=== PATIENT | male | born 1970 | race Caucasian/White ===

== ENCOUNTER → 2017-11-16 | Outpatient (CLI) | payer OTHER ==
[~2017-11-16] MED LIST: AMOX500T10 PO; CEP500 PO; CIPR-344 PO; ESCI20TA38 PO; ESOM20CA31; HYDR-385 PO; IBUP-1455 PO; KET10 PO; LANS1COM7; LOPE1LIQ49 PO; METR-1 PO; NAP500 PO; OMEP-218 PO; PER PO; antidepressant
[2017-11-16 12:32] LABS: PLATELET COUNT, AUTOMATED 257 K/uL (150-450)
--- NOTE | 2017-11-16 13:33 | RADIOLOGY IMAGING REPORT ---
[place] [facility] [place] Werner Oneill : 1970 MR: [id number] V: [id number] EXAM DATE: ORDERING PHYSICIAN: HAJA SHANE TECHNOLOGIST: Location: [facility] Patient: Werner Oneill : 1970 Visit/Account:[id number] Date of Sevice: 11/16/2017 Exam type: CHEST PA AND LAT History: Shortness of breath and cough x1 week Comparison: September 20, 2010. Findings: The lungs are free of acute effusions, infiltrates or edema.. There is a 1.2 cm nodule projecting ov er the posterior aspect left upper thorax as seen on the lateral view. This is not appreciated on th e prior study. This is not well seen on the PA view. Cardiac silhouette is normal in size. IMPRESSION: 1. There is a 1.2 cm nodular density projecting over the posterior aspect of the left upper thorax o nly appreciated on the lateral view. This was not seen on the prior chest there for chest CT is kevin mmended for further evaluation Report Dictated By: Sheri Wilkins MD at 11/16/2017 1:27 PM Report E-Signed By: Sheri Wilkins MD at 11/16/2017 1:29 PM WSN:[email or web address]
== END ==
LOC: LAB 12:13
PROVIDERS: ATTEND Nurse Practitioner Family
DX: R22.2 Localized swelling, mass and lump, trunk (principal); R06.02 Shortness of breath; R05 Cough
CPT/HCPCS: 36415; 71046; 85025; 85379

== ENCOUNTER → 2017-11-17 | Outpatient (CLI) | payer OTHER ==
--- NOTE | 2017-11-17 09:51 | RADIOLOGY IMAGING REPORT ---
FACILITY: [facility] - [place] PATIENT NAME: Wrener Oneill : 1970 MR: [id number] V: [id number] EXAM DATE: ORDERING PHYSICIAN: HAJA SHANE TECHNOLOGIST: Location: [facility] [place] Patient: Werner Oneill : 1970 Visit/Account:[id number] Date of Sevice: 11/17/2017 CHEST W/O CONTRAST HISTORY: Pulmonary nodule, cough. TECHNIQUE: CT chest without intravenous contrast. One of the following dose optimization techniques was utilized in the performance of this exam: Autom ated exposure control; adjustment of the mA and/or kV according to the patient's size; or use of an i terative reconstruction technique. Specific details can be referenced in the facility's radiology C T exam operational policy. CONTRAST: None. COMPARISON: Chest x-ray 11/16/2017, CT chest 03/27/2010 FINDINGS: Heart/vessels: Negative. Mediastinum: Very small sliding-type hiatal hernia. Lymph nodes: No bulky adenopathy. Lungs/pleura: Noncalcified 4 mm nodule right middle lobe (series 4/image 205), unchanged from prior CT and consistent with benign granuloma. Subtle 4 mm groundglass nodule posterior lateral right apex (image 88), not definitively present on prior exam. Noncalcified punctate nodule lateral left upper l obe (image 200), unchanged from prior CT and consistent with benign granuloma. Noncalcified 3 mm nodu le posterior lateral left lower lobe (image 224), unchanged from prior CT and consistent with benign granuloma. Visualized upper abdomen: Spleen incompletely visualized but at least mildly enlarged. Bones/soft tissues: 2.1 cm right thyroid nodule. Dense T5 vertebral body lesion measuring 13 mm, inc reased in size from remote prior exam where it measured 4 mm. Other small sclerotic foci within the t horacic spine are unchanged. IMPRESSION: 1. 13 mm dense bony lesion within the T5 vertebral body, corresponding with findings on recent chest x-ray and increased in size from remote prior exam but most consistent with a benign bone island. If patient has symptoms referable to this site however, bone scintigraphy could be performed to ensure n o abnormal uptake. 2. Several stable bilateral pulmonary nodules consistent with benign granulomas. 3. Newly evident 4 mm groundglass pulmonary nodule right apex. According to current [employer] y guidelines, 2-year unenhanced chest CT follow-up should be considered. 4. 2.1 cm right thyroid nodule warranting further evaluation with ultrasound and potential ultrasound -guided fine-needle aspiration. Report Dictated By: Raz Fox MD at 11/17/2017 8:59 AM Report E-Signed By: Raz Fox MD at 11/17/2017 9:47 AM WSN:[id number]
== END ==
LOC: CT 08:19
PROVIDERS: ATTEND Nurse Practitioner Family
DX: M89.9 Disorder of bone, unspecified (principal); K44.9 Diaphragmatic hernia without obstruction or gangrene; R91.8 Other nonspecific abnormal finding of lung field; R16.1 Splenomegaly, not elsewhere classified; E04.1 Nontoxic single thyroid nodule
CPT/HCPCS: 71250

== ENCOUNTER → 2017-11-29 | Outpatient (CLI) | payer OTHER ==
[2017-11-29 08:15] LABS: INR 0.95
== END ==
LOC: LAB 07:50
PROVIDERS: ATTEND Nurse Practitioner Family
DX: E04.1 Nontoxic single thyroid nodule (principal)
CPT/HCPCS: 36415; 85610; 85730

== ENCOUNTER → 2017-12-04 | Outpatient (CLI) | payer OTHER ==
--- NOTE | 2017-12-04 11:49 | RADIOLOGY IMAGING REPORT ---
FACILITY: [facility] PATIENT NAME: Werner Oneill : 1970 MR: [id number] V: [id number] EXAM DATE: ORDERING PHYSICIAN: HAJA SHANE TECHNOLOGIST: Location: [facility] - [place] Patient: Werner Oneill : 1970 Visit/Account:[id number] Date of Sevice: 12/04/2017 EXAMINATION: Ultrasound thyroid HISTORY: Right thyroid nodule seen on prior CT chest COMPARISON: CT chest 11/17/2017 FINDINGS: Thyroid size: Right lobe: 5.5 x 2.7 x 2.0 cm Left lobe: 5.2 x 1.7 x 1.5 cm Isthmus: 0.4 cm Thyroid heterogeneity: Homogeneous parenchyma. Thyroid vascularity: Normal. Thyroid nodules: Right lobe: * Midpole mixed solid and cystic nodule, 2.5 x 1.7 x 1.4 cm, corresponds to the finding on the CT ch est. The solid component of this nodule is eccentric and 1.5 cm greatest diameter. Left lobe: * Two spongiform nodules in the upper and midpole measure four and 5 mm, respectively. Isthmus: * None discrete. Additional findings: None. IMPRESSION: Low suspicion 2.5 cm right thyroid lobe nodule. Recommend ultrasound-guided FNA biopsy of this nodule. Note: Ultrasound-guided FNA biopsy of this nodule was completed today. REFERENCE: 2015 [place] [employer] Management Guidelines for Adult Patients with Thyroid Nodules and D ifferentiated Thyroid Cancer: The [place] Thyroid Association Guidelines Task Force on Thyroid Nodul es and Differentiated Thyroid Cancer. SONOGRAPHIC PATTERNS: * Benign: Purely cystic nodules (no solid component); estimated risk of malignancy <1 percent; no bi opsy recommended. * Very Low Suspicion: Spongiform or partially cystic nodules without any of the sonographic features described in low, intermediate, or high suspicion patterns; estimated risk of malignancy <3 percent; consider FNA at > 2 cm (Observation without FNA is also a reasonable option). * Low Suspicion: Isoechoic or hyperechoic solid nodule, or partially cystic nodule with eccentric so lid areas, without microcalcification, irregular margin or ETE (extra-thyroidal extension), or taller than wide shape; estimated risk of malignancy 5-10 percent; recommend FNA at >1.5 cm. * Intermediate Suspicion: Hypoechoic solid nodule with smooth margins without microcalcifications, E TE (extra-thyroidal extension), or taller than wide shape; estimated risk of malignancy 10-20 percent ; recommend FNA at > 1 cm. * High Suspicion: Solid hypoechoic nodule or solid hypoechoic component of a partially cystic nodule with one or more of the following features: irregular margins (infiltrative, microlobulated), microc alcifications, taller than wide shape, rim calcifications with small extrusive soft tissue component, evidence of ETE (extra-thyroidal extension); estimated risk of malignancy >70-90 percent; recommend FNA at > 1 cm. NOTES: * Although a sonographically suspicious subcentimeter thyroid nodule without evidence of extrathyroi cassidy extension or sonographically suspicious lymph nodes may be observed with close sonographic follow -up rather than pursuing immediate FNA, patient age and preference may modify decision-making. * A > 50% interval increase in nodule volume and/or development of new suspicious sonographic featur es are felt to be a valid reasons for potential re-aspiration of a nodule previously shown to have be nign FNA cytology. Report Dictated By: Jesusita Stauffer MD at 12/04/2017 11:40 AM Report E-Signed By: Jesusita Stauffer MD at 12/04/2017 11:44 AM WSN:[email or web address]
--- NOTE | 2017-12-04 16:34 | RADIOLOGY IMAGING REPORT ---
FACILITY: [facility] - [place] PATIENT NAME: Werner Oneill : 1970 MR: [id number] V: [id number] EXAM DATE: ORDERING PHYSICIAN: HAJA SHANE TECHNOLOGIST: Location: [facility] - [place] Patient: Werner Oneill : 1970 Visit/Account:[id number] Date of Sevice: 12/04/2017 EXAMINATION: Ultrasound guided FNA of thyroid nodule at one site HISTORY: Right thyroid lobe low suspicion 2.5 cm nodule by prior imaging. COMPARISON: Thyroid ultrasound 12/04/2017, CT chest 11/17/2017 PROCEDURE: Previous studies were reviewed. Procedure benefits and risks were discussed with the patient and writ ten consent was obtained. A time out was performed prior to the procedure. The patient's neck was prepped and draped in a sterile fashion. Lidocaine one percent was used for s kin and deep soft tissue anesthesia. Nodule 1: Right thyroid cystic and solid nodule was localized with ultrasound. Using ultrasound kristina nce, a 27 gauge needle was inserted percutaneously into the nodule. Two aspirates were obtained and placed onto slides for cytologic evaluation. Two additional aspirates were made into the nodule usin g similar technique and were given to the interior block wirer to save for Afirma testing if needed. Thr ee additional passes were made into the nodule using 27-gauge needle and ultrasound guidance, but the aspirates were not diagnostic because of technical issues. Preliminary evaluation of the aspirates by the pathologist was performed at the time of the biopsy. The patient declined additional sampling of the nodule today. There were no complications. IMPRESSION: Ultrasound-guided FNA biopsy of a right thyroid nodule as described above. Pathology results are pending. Report Dictated By: Jesusita Stauffer MD at 12/04/2017 4:24 PM Report E-Signed By: Jesusita Stauffer MD at 12/04/2017 4:31 PM WSN:[email or web address]
== END ==
LOC: US 02:59
PROVIDERS: ATTEND Nurse Practitioner Family
DX: E04.1 Nontoxic single thyroid nodule (principal)
CPT/HCPCS: 10022; 76536; 76942; 88104; 88172

== ENCOUNTER 2019-05-03 16:06 | Inpatient (IN) | payer OTHER ==
[~2019-05-03] VITALS: Ht 170.2 cm; Wt 68.5 kg
[2019-05-03] MEDS ORDERED: NS(*) 0.9% 1000 ML BAG 1,000 ML IV ONE (16:26)
[2019-05-03] MEDS ORDERED: HYDROMORPHONE HCL 1 MG/ML SYRINGE IVP ONE ×3 (16:30→19:10)
[2019-05-03] MEDS ORDERED: ONDANSETRON 4 MG/2 ML VIAL IVP ONE (16:30)
--- NOTE | 2019-05-03 16:43 | ER Report ---
History and Physical Time Seen By MD: 16:10 Hx. of Stated Complaint: MID ABDOMINAL PAIN SINCE THURSDAY THAT HAS NOT GOTTEN BETTER. NAUSEOUS TODAY STARTING AROUND NOON. STATES THE LAST TIME HE FELT LIKE THIS HE HAD SOME BLOODY STOOLS AND THEN IT WENT AWAY (TIANNA ARCEO MD) HPI/ROS CHIEF COMPLAINT: Abdominal pain HISTORY OF PRESENT ILLNESS: Patient is a 49-year-old male comes emergency Department today with complaint of right-sided epigastric and right lower quadrant abdominal pain. Patient has his appendix is aren't been removed. Patient said this is been going on for the past 7 days. Persistent and constant sharp stabbing localized in the last 24-40 are significantly worse last time he had this he had questionable bright red blood per rectum. Patient denies any vomiting but has been nauseated pain is intractable he did eat a. Pharyngeal exam which today around noon held that down without issue. Patient denies any fever chills or sweats chest pain or shortness of breath REVIEW OF SYSTEMS: Respiratory: No cough, no dyspnea. Cardiovascular: No chest pain, no palpitations. Gastrointestinal: Nausea no vomiting abdominal pain Musculoskeletal: No back pain. Remainder of the 14 system rev: Yes (TIANNA ARCEO MD) Allergies: Coded Allergies: No Known Drug Allergies (Verified , 05/03/19) Home Meds Reported Medications Omeprazole (OMEPRAZOLE) 40 Mg Capsule.dr, 1 CAP PO QDAY 05/04/19 Escitalopram Oxalate (LEXAPRO) 20 Mg Tablet, 20 MG PO QDAY, TAB 01/12/17 Discontinued Reported Medications Esomeprazole Mag Trihydrate (Nexium) 20 Mg Capsule., DAILY 01/28/12 Discontinued Scripts Loperamide Hcl (IMODIUM A-D) 1 Mg/7.5 Ml Liquid, 1 MG PO BID, #10 Prov:TIANNA ARCEO MD 01/12/17 Metronidazole (FLAGYL) 500 Mg Tablet, 500 MG PO BID, #14 TAB Prov:TIANNA ARCEO MD 01/12/17 Ciprofloxacin Hcl 500 Mg Tab (CIPRO 500 MG TAB) 500 Mg Tablet, 500 MG PO BID, #20 Prov:TIANNA ARCEO MD 01/12/17 Reviewed Nurses Notes: Yes Old Medical Records Reviewed: Yes (TIANNA ARCEO MD) Hx Smoking: Yes Smoking Status: Former Smoker Hx Substance Use Disorder: No Hx Alcohol Use: Yes (OCC) (TIANNA ARCEO MD) Constitutional Vital Sign - Last 24 Hours 05/03/19 05/03/19 05/03/19 05/03/19 16:20 16:30 17:22 17:30 Temp 98.1 Pulse 80 90 80 Resp 20 B/P (MAP) 126/92 114/71 (85) 108/80 (89) Pulse Ox 94 94 87 O2 Delivery Room Air 05/03/19 05/03/19 05/03/19 05/03/19 18:00 18:30 18:35 19:00 Pulse 74 75 B/P (MAP) 113/83 (93) 109/87 (94) 112/77 (89) Pulse Ox 82 88 91 05/03/19 19:05 Pulse 77 Pulse Ox 89 Intake and Output 0 05/03/19 05/03/19 05/04/19 15:02 23:02 07:02 Intake Total 1000 ml Balance 1000 ml (AURORA VIERA DO) Physical Exam General Appearance: The patient is alert, has no immediate need for airway protection and no current signs of toxicity. [ ] Eyes: Pupils equal and round no injection. Respiratory: Chest is non tender, lungs are clear to auscultation. Cardiac: regular rate and rhythm [ ] Gastrointestinal: Abdomen significant tenderness to mild to moderate palpation in the epigastrium right upper quadrant palpable liver margin about 2 cm below the costal border verified percussively normal bowel sounds rebound with guarding Musculoskeletal: Neck: Neck is supple and non tender. Extremities have full range of motion and are non tender. Skin: No rashes or lesions. [ ] DIFFERENTIAL DIAGNOSIS: After history and physical exam differential diagnosis was considered for small bowel perforation small bowel obstruction ileus pancreatitis liver dysfunction colitis and diverticulitis perfect (TIANNA ARCEO MD) Medical Decision Making Data Points Result Diagram: 05/04/19 0532 05/04/19 0532 Laboratory Chemistry Test 05/03/19 16:37 Total Bilirubin 0.5 mg/dl (0.2-1.3) Aspartate Amino Transf (AST/SGOT) 23 U/L (0-35) Alanine Aminotransferase (ALT/SGPT) 35 U/L (0-56) Alkaline Phosphatase 99 U/L (0-126) Total Protein 7.8 g/dl (6.3-8.2) Albumin 4.8 g/dl (3.5-5.0) Lipase 65 U/L (23-300) Coagulation Test 05/03/19 16:37 Prothrombin Time 12.8 seconds (12.0-14.4) Prothromb Time International Ratio 0.97 Activated Partial Thromboplast Time 30 seconds (23-35) Toxicology Test 05/03/19 16:37 Serum Alcohol < 10 mg/dl Urinalysis Test 05/03/19 16:13 Urine Color Yellow Urine Clarity Clear Urine pH 5.0 pH (4.8-9.5) Urine Specific Elsie 1.015 Urine Protein Negative mg/dL (NEGATIVE) Urine Glucose (UA) Negative mg/dL (NEGATIVE) Urine Ketones Negative mg/dL (NEGATIVE) Urine Blood Negative (NEGATIVE) Urine Nitrite Negative (NEGATIVE) Urine Bilirubin Negative (NEGATIVE) Urine Urobilinogen Negative mg/dL (0.2-1.9) Urine Leukocyte Esterase Negative (NEGATIVE) Urine RBC <1 /HPF (0-2/HPF) Urine WBC <1 /HPF (0-5/HPF) Urine Squamous Epithelial Cells None /LPF (</=FEW) Urine Bacteria Negative /HPF (NONE-FEW) Urine Mucus Few /HPF (NONE-FEW) (AURORA VIERA DO) EKG/Imaging Imaging Results: CT scan of the abdomen and pelvis with IV contrast was obtained. The results of the study are EXAMINATION: CT abdomen and pelvis with IV contrast HISTORY: Abdominal pain. TECHNIQUE: Axial CT images of the abdomen and pelvis were obtained with IV contrast, with coronal and sagittal 2D reconstructed images. One of the following dose optimization techniques was utilized in the performance of this exam: Automated exposure control; adjustment of the mA and/or kV according to the patient's size; or use of an iterative reconstruction technique. Specific details can be referenced in the facility's radiology CT exam operational policy. Contrast: 75 mL of IV Isovue-370. COMPARISON: None. FINDINGS: Liver: Negative. Gallbladder and bile ducts: Negative. Spleen: Negative. Pancreas: Negative. Adrenal glands: Negative. Kidneys: Negative. No hydronephrosis or urinary calculi. Bowel and peritoneum: There is mild dilatation of fluid-filled small bowel loops throughout the abdomen and pelvis with air-fluid levels. Dilated small bowel loops measure up to 3.3 cm. There is a focal transition along the distal ileum in the lower right pelvis (series 2, image 119) with mild wall thickening and enhancement of the ileum just distal to the transition. There is additional mild wall thickening and enhancement along the terminal ileum. The colon is normal in caliber with a small volume of scattered colonic stool. No colonic wall thickening. Trace amount of free fluid in the pelvis. No free intraperitoneal air. Pelvic structures: Negative. Lymph node assessment: Negative. Vessels: Mild vascular calcifications. Normal caliber abdominal aorta. Musculoskeletal: No acute osseous findings. Chronic bilateral L5 spondylolysis with grade 2 spondylolisthesis. Moderate disc space narrowing at the lumbosacral interspace. Body wall: Negative. Lung bases: Negative. IMPRESSION: 1. There is dilatation of fluid-filled small bowel loops in the abdomen and pelvis with air-fluid levels. Focal transition along the distal ileum, with mild wall thickening and enhancement just distal to the transition. CT appearance is compatible with at least a partial small bowel obstruction, which may relate to localized inflammation along the distal ileum. This could be infectious in nature or could relate to inflammatory bowel disease including possible Crohn's disease. 2. No other acute intra-abdominal findings. The study was read by the radiologist. I viewed the images myself on the PACS system. (AURORA VIERA DO) ED Course/Re-evaluation ED Course Care was assumed at shift change from Dr. Arceo. CT results show a partial small bowel obstruction, bowel wall thickening suspicious for Crohn's disease. Patient's had blood per rectum. He's had severe nausea. Case was discussed with general surgery, Dr. Garrido, who accepts the patient for admission. He would like an NG tube placed. 05/03/2019 7:04:10 pm case discussed with Dr. Elliot Garrido, general surgery on- call, who accepts the patient for admission Decision to Disposition Date: May 03, 2019 Decision to Disposition Time: 18:09 (AURORA VIERA DO) Depart Departure Latest Vital Signs Vital Signs Date Time Temp Pulse Resp B/P (MAP) Pulse Ox O2 Delivery O2 Flow Rate FiO2 05/03/19 19:05 77 89 05/03/19 19:00 112/77 (89) 05/03/19 16:20 98.1 20 Room Air (AURORA VIERA DO) Impression: Primary Impression: Partial small bowel obstruction Condition: Improved Disposition: Admitted from ER Referrals: HAJA SHANE (PCP) TIANNA ARCEO MD May 03, 2019 16:43 AURORA VIERA DO May 03, 2019 18:13
[2019-05-03 16:55] LABS: PLATELET COUNT, AUTOMATED 263 K/uL (150-450)
[2019-05-03] MEDS ORDERED: IOPAMIDOL 76% 100 ML INFUS BTL 100 ML ONE (16:58)
[2019-05-03 17:05] LABS: INR 0.97
--- NOTE | 2019-05-03 17:29 | RADIOLOGY IMAGING REPORT ---
FACILITY: [facility] - [place] PATIENT NAME: Werner Oneill : 1970 MR: [id number] V: [id number] EXAM DATE: ORDERING PHYSICIAN: TIANNA ARCEO TECHNOLOGIST: Location: [facility] Patient: Werner Oneill : 1970 Visit/Account:[id number] Date of Sevice: 05/03/2019 CHEST PA LAT INDICATION: 11/16/2017 COMPARISON: None available FINDINGS: Heart size within normal limits. There is no focal infiltrate or lobar consolidation. There is no pneumothorax or pleural effusion. IMPRESSION: 1. No acute cardiopulmonary process. Report Dictated By: Garrison Lopez at 05/03/2019 5:21 PM Report E-Signed By: Garrison Lopez at 05/03/2019 5:21 PM WSN:[id number]
[2019-05-03] MEDS ORDERED: HYDROmorphone HCL 2 MG/ML SDV IVP ONE (17:45)
--- NOTE | 2019-05-03 17:47 | RADIOLOGY IMAGING REPORT ---
FACILITY: [facility] - [place] PATIENT NAME: Werner Oneill : 1970 MR: [id number] V: [id number] EXAM DATE: ORDERING PHYSICIAN: TIANNA ARCEO TECHNOLOGIST: Location: [facility] Patient: Werner Oneill : 1970 Visit/Account:[id number] Date of Sevice: 05/03/2019 EXAMINATION: CT abdomen and pelvis with IV contrast HISTORY: Abdominal pain. TECHNIQUE: Axial CT images of the abdomen and pelvis were obtained with IV contrast, with coronal a nd sagittal 2D reconstructed images. One of the following dose optimization techniques was utilized in the performance of this exam: Autom ated exposure control; adjustment of the mA and/or kV according to the patient's size; or use of an i terative reconstruction technique. Specific details can be referenced in the facility's radiology C T exam operational policy. Contrast: 75 mL of IV Isovue-370. COMPARISON: None. FINDINGS: Liver: Negative. Gallbladder and bile ducts: Negative. Spleen: Negative. Pancreas: Negative. Adrenal glands: Negative. Kidneys: Negative. No hydronephrosis or urinary calculi. Bowel and peritoneum: There is mild dilatation of fluid-filled small bowel loops throughout the abdo men and pelvis with air-fluid levels. Dilated small bowel loops measure up to 3.3 cm. There is a foca l transition along the distal ileum in the lower right pelvis (series 2, image 119) with mild wall th ickening and enhancement of the ileum just distal to the transition. There is additional mild wall th ickening and enhancement along the terminal ileum. The colon is normal in caliber with a small volume of scattered colonic stool. No colonic wall thicke franny. Trace amount of free fluid in the pelvis. No free intraperitoneal air. Pelvic structures: Negative. Lymph node assessment: Negative. Vessels: Mild vascular calcifications. Normal caliber abdominal aorta. Musculoskeletal: No acute osseous findings. Chronic bilateral L5 spondylolysis with grade 2 spondyl olisthesis. Moderate disc space narrowing at the lumbosacral interspace. Body wall: Negative. Lung bases: Negative. IMPRESSION: 1. There is dilatation of fluid-filled small bowel loops in the abdomen and pelvis with air-fluid lev els. Focal transition along the distal ileum, with mild wall thickening and enhancement just distal t o the transition. CT appearance is compatible with at least a partial small bowel obstruction, which may relate to localized inflammation along the distal ileum. This could be infectious in nature or co uld relate to inflammatory bowel disease including possible Crohn's disease. 2. No other acute intra-abdominal findings. Report Dictated By: Justyn Hernández MD at 05/03/2019 5:26 PM Report E-Signed By: Justyn Hernández MD at 05/03/2019 5:40 PM WSN:[id number]
[2019-05-03] MEDS ORDERED: MORPHINE 2 MG/ML SYR IVP PRN (19:15)
[2019-05-03] MEDS ORDERED: NALOXONE HCL 0.4 MG/ML VIAL IVP PRN (19:15)
[2019-05-03] MEDS ORDERED: FLUSH 10 ML SYR IVP PRN (19:15)
[2019-05-03] MEDS ORDERED: ONDANSETRON 4 MG/2 ML VIAL IVP PRN (19:15)
--- NOTE | 2019-05-03 19:51 | Gen Surgery History & Physical ---
History of Present Illness Chief Complaint Abdominal pain and bloating History of Present Illness 49yo male presents to the ER with 3 days of abdominal pain and bloating with nausea. He had a similar episode 10 months ago while travelling that lasted 4 days before resolving. After the pain improved and he "opened up" he saw some blood in his stool. No blood per rectum since then. Last flatus was this morning and last BM was yesterday but he generally has BMs every other day. He had a RIH repaired 9 years ago and a lap appy 14 years ago. Only other medical problem is GERD. EGD performed about 15 years ago, normal according to patient and . No previous colonoscopy. No FH IBD or other GI issues/malignancies. CT c/w SBO, questionable terminal ileitis. I have been consulted to help with further management of this patient. History Problems: (1) GERD (gastroesophageal reflux disease) Status: Chronic Home Meds Active Scripts Loperamide Hcl (IMODIUM A-D) 1 Mg/7.5 Ml Liquid, 1 MG PO BID, #10 Prov:TIANNA ARCEO MD 01/12/17 Metronidazole (FLAGYL) 500 Mg Tablet, 500 MG PO BID, #14 TAB Prov:TIANNA ARCEO MD 01/12/17 Ciprofloxacin Hcl 500 Mg Tab (CIPRO 500 MG TAB) 500 Mg Tablet, 500 MG PO BID, #20 Prov:TIANNA ARCEO MD 01/12/17 Reported Medications Escitalopram Oxalate (LEXAPRO) 20 Mg Tablet, 20 MG PO QDAY, TAB 01/12/17 Esomeprazole Mag Trihydrate (Nexium) 20 Mg Capsule., DAILY 01/28/12 Allergies: Coded Allergies: No Known Drug Allergies (Verified , 05/03/19) Review of Systems All Systems Reviewed/Normal: Yes, Except as Noted Gastrointestinal: Nausea, Abdominal Pain Exam General Appearance: Alert, Awake, No Acute Distress, Afebrile Neuro: No Gross deficits Eyes: PERRLA GI: Other (Soft, mildly distended, TTP in epigastrium, no palpable mass or bulge, no peritoneal signs) Extremities: Warm, Perfused Psych: Alert & Oriented X3, Appropriate Mood & Affect Medical Decision Making Data Points Result Diagram: 05/03/19 2389 05/03/19 9067 Assessment and Plan Problems: (1) Partial small bowel obstruction Status: Acute Assessment & Plan: 05/03/19: Admit, NPO, NG tube decompression, IV fluids, pain and nausea control. If no better in the morning then will proceed with water- soluble SBFT. I have explained small bowel obstructions and their treatment to the patient in detail. He seems to understand this discussion and his questions have been answered. He would like to proceed with this plan. It is possible that his obstruction is due to Crohn's-related terminal ileitis and so if he fails to improve in the next 48 hours or if the SBFT indicates Crohn's ileitis (although water soluble contrast will make the study less sensitive at detecting ileitis) then will start IV steroids and then convert to Budesonide if he improves on steroids. He will need a colonoscopy at some point in the near future, during this hospitalization if he fails to improve or as an outpatient if he responds to the above plan. Condition Stable. Time Spent: < 30 min Venous Thromboembolism VTE Risk Physician Assess for VTE Risk: Yes Patient's VTE Risk: Low VTE Diagnostic Test 2 Days Prior to Admit: No Antithrombotics Is Pt On Any Antithrombotics?: No ROXANA ZEPEDA MD May 03, 2019 19:51
[2019-05-03 20:10] VITALS: BP 118/90
[2019-05-03] MEDS: NS(*) 0.9% 1000 ML BAG 1,000 ML IV PRN (20:40)
--- NOTE | 2019-05-03 21:02 | RADIOLOGY IMAGING REPORT ---
FACILITY: [facility] - [place] PATIENT NAME: Werner Oneill : 1970 MR: [id number] V: [id number] EXAM DATE: ORDERING PHYSICIAN: AURORA VIERA TECHNOLOGIST: Location: [facility] [place] Patient: Werner Oneill : 1970 Visit/Account:[id number] Date of Sevice: 05/03/2019 EXAMINATION: Portable AP Chest HISTORY: NG tube placement. COMPARISON: Prior study of earlier today. FINDINGS: New NG tube, with tip overlying the stomach in the left upper abdomen. The lungs are grossly clear. No new focal consolidation or pleural effusion. Normal cardiomediastinal silhouette. IMPRESSION: NG tube tip in the stomach. Report Dictated By: Justyn Hernández MD at 05/03/2019 8:54 PM Report E-Signed By: Justyn Hernández MD at 05/03/2019 8:55 PM WSN:[id number]
[2019-05-03] MEDS: HYDROmorphone HCL 2 MG/ML SDV IVP PRN (22:54)
[2019-05-03 23:30] VITALS: BP 112/81
[2019-05-04 01:30] VITALS: BP 114/87
[2019-05-04 04:00] VITALS: BP 116/88
[2019-05-04] MEDS: NS(*) 0.9% 1000 ML BAG 1,000 ML IV PRN (04:12)
[2019-05-04] MEDS: HYDROmorphone HCL 2 MG/ML SDV IVP PRN (04:13)
[2019-05-04 06:07] LABS: PLATELET COUNT, AUTOMATED 220 K/uL (150-450)
[2019-05-04] MEDS ORDERED: NS(*) 0.9% 1000 ML BAG 1,000 ML IV PRN (06:56)
[2019-05-04 06:57] VITALS: BP 103/67
--- NOTE | 2019-05-04 07:03 | General Surgery Progress Note ---
Subjective Progress Notes Subjective Pt feeling back to normal this morning. Passing flatus. Wants NG tube out. Physical Exam Vital Signs Date Time Temp Pulse Resp B/P (MAP) Pulse Ox O2 Delivery O2 Flow Rate FiO2 05/04/19 04:00 97.8 62 16 116/88 (97) 94 Nasal Cannula 1.0 Intake and Output 05/04/19 07:02 Intake Total 2000 ml Output Total 1050 ml Balance 950 ml Intake IV Total 2000 ml Output Gastric Drainage Total 1050 ml # Voids 1 General Appearance: Alert, Awake, No Acute Distress, Afebrile GI: Soft and Non-Tender Extremities: Warm, Perfused Result Diagram: 05/04/19 0532 05/04/19 0532 Assessment and Plan Problems: (1) Partial small bowel obstruction Status: Acute Assessment & Plan: 05/03/19: Admit, NPO, NG tube decompression, IV fluids, pain and nausea control. If no better in the morning then will proceed with water- soluble SBFT. I have explained small bowel obstructions and their treatment to the patient in detail. He seems to understand this discussion and his questions have been answered. He would like to proceed with this plan. It is possible that his obstruction is due to Crohn's-related terminal ileitis and so if he fails to improve in the next 48 hours or if the SBFT indicates Crohn's ileitis (although water soluble contrast will make the study less sensitive at detecting ileitis) then will start IV steroids and then convert to Budesonide if he improves on steroids. He will need a colonoscopy at some point in the near future, during this hospitalization if he fails to improve or as an outpatient if he responds to the above plan. 05/04/19: Seems to be doing much better. Passing flatus. Offered to get water- soluble SBFT prior pulling NG tube since he was just admitted last evening but he wants the NG tube out and so I removed it this morning. Will try clear diet this morning. If he remains asymptomatic and goes home tomorrow, I will see him back in my office because he still needs further w/u to look for Crohn's which will include a CT enterography and colonoscopy with small bowel inspection and biopsies as an outpatient. He may also need capsule endoscopy. He seems agreeable with this plan. Condition Stable. Time Spent: < 30 min Exam Sepsis Risk: No Definite Risk ROXANA ZEPEDA MD May 04, 2019 07:03
[2019-05-04] MEDS: PANTOPRAZOLE SOD 40 MG IV VIAL IVP SCH (08:31)
[2019-05-04] MEDS: ENOXAPARIN 40 MG/0.4ML SYR SC SCH (08:31)
[2019-05-04] MEDS ORDERED: ESCITALOPRAM OXALATE 10 MG TAB PO SCH (09:00)
--- NOTE | 2019-05-04 10:41 | Medical Nutrition Therapy ---
Nutrition Anthropometrics Height (Inches): 67.00 Height (Calculated Centimeters: 170.565844 Weight (Pounds): 151 Weight (Calculated Kilograms): 68.492 BMI: 23.6 Hx Weight Loss: No Hx Weight Gain: No Cachorro Nutrition Score: Probably Inadequate C[place]orro Nutrition Risk Score: 20 Dietary Referral Nutrition Risk Factors: Nutrition Risk Comment: Physical Findings Physical Appearance: WNR Skin Appearance Skin Appearance: Edema Edema Location Modifier: Edema Location: Type of Edema: Degree of Edema: Gastrointestinal Symptoms GI Symtoms: Bloating Tube Present: NG Bowel Sounds: Recent Bowel Pattern: Stool Characteristics: Nutritional Diagnosis Nutritional Risk Acuity 1: GI Obstruction Past Medical History: GERD, hernia repair Nutritional Acuity: 1-High Nutrition Diagnosis: Excessive Food Intake, Altered GI Function Nutrition Etiology: Physiological Causes Nutrition Problem/Etiology/Sym: partial SBO Energy Requirement: 1990 (HBE AF 1.3) Protein Requirement: 69 (1g/kg) Fluid Requirement: 1990 Nutrition Intervention: Incr diet as tolerated Nutrition Monitoring & Eval Nutrition Monitoring: Monitor tolerance to clear liquids, monitor for resolution of bowel obstruction RD Patient Assessment Time: [address] Assessment Type: RD Assessment Patient Nutrition Acuity: 1-High Follow Up Date: May 06, 2019 Nutritional Comment: 05/04/19: Reviewed pt current and past medical hx. Pertinent for previous episode of blood in stool about 10 months ago, and GERD. Spoke with pt this am, discussed following a low fiber diet/low residue diet. Pt has had no recent wt loss, no diarrhea except for 10 months ago. According to MD report, Dr. Garrido wants to do additional work up to determine if pt has Chron's disease. Recommend advance diet as tolerated to medical liquid/GI soft. Will continue to monitor pt tolerance to clears and resolution of bowel obstruction.RAYSHAWN PRITCHARD May 04, 2019 10:41
[2019-05-04 11:39] VITALS: BP 93/73
[2019-05-04] MEDS: ACETAMINOPHEN(*)1000 MG/100 ML 100 ML IVPB PRN ×2 (12:22→19:19)
[2019-05-04 15:29] VITALS: BP 99/67
[2019-05-04] MEDS ORDERED: OMEP40CA48 PO (15:35)
--- NOTE | 2019-05-04 17:32 | NUR ---
Educated patient of importance of education of ambulation, patient refused walk in hallways. Patient apprehensive about eating more clear liquids.
[2019-05-04] MEDS: KCL/D1/2NS 20 MEQ 1000 ML 1,000 ML IV SCH (19:17)
[2019-05-04 19:56] VITALS: BP 118/74
[2019-05-05] MEDS: ACETAMINOPHEN(*)1000 MG/100 ML 100 ML IVPB PRN (03:43)
[2019-05-05] MEDS: KCL/D1/2NS 20 MEQ 1000 ML 1,000 ML IV SCH ×3 (03:43→20:29)
[2019-05-05 05:50] LABS: PLATELET COUNT, AUTOMATED 207 K/uL (150-450)
[2019-05-05 06:48] VITALS: BP 108/69
--- NOTE | 2019-05-05 07:56 | General Surgery Progress Note ---
Subjective Progress Notes Subjective Still feeling abdominal cramping. No nausea. Passing flatus but no stool. Physical Exam Vital Signs Date Time Temp Pulse Resp B/P (MAP) Pulse Ox O2 Delivery O2 Flow Rate FiO2 05/05/19 06:48 98.4 52 17 108/69 (82) 95 Room Air 05/04/19 04:00 1.0 Intake and Output 05/05/19 07:02 Intake Total 1660 ml Balance 1660 ml Intake Oral 600 ml IV Total 1060 ml # Voids 3 General Appearance: Alert, Awake, No Acute Distress, Afebrile GI: Other (Soft, mild upper abdominal TTP) Extremities: Warm, Perfused Result Diagram: 05/05/1951705/05/19517 Assessment and Plan Problems: (1) Partial small bowel obstruction Status: Acute Assessment & Plan: 05/03/19: Admit, NPO, NG tube decompression, IV fluids, pain and nausea control. If no better in the morning then will proceed with water- soluble SBFT. I have explained small bowel obstructions and their treatment to the patient in detail. He seems to understand this discussion and his questions have been answered. He would like to proceed with this plan. It is possible that his obstruction is due to Crohn's-related terminal ileitis and so if he fails to improve in the next 48 hours or if the SBFT indicates Crohn's ileitis (although water soluble contrast will make the study less sensitive at detecting ileitis) then will start IV steroids and then convert to Budesonide if he improves on steroids. He will need a colonoscopy at some point in the near future, during this hospitalization if he fails to improve or as an outpatient if he responds to the above plan. 05/04/19: Seems to be doing much better. Passing flatus. Offered to get water- soluble SBFT prior pulling NG tube since he was just admitted last evening but he wants the NG tube out and so I removed it this morning. Will try clear diet this morning. If he remains asymptomatic and goes home tomorrow, I will see him back in my office because he still needs further w/u to look for Crohn's which will include a CT enterography and colonoscopy with small bowel inspection and biopsies as an outpatient. He may also need capsule endoscopy. He seems agreeable with this plan. 05/05/19: Symptoms returned yesterday, albeit not as severe, when he tried to eat jell-o so made NPO. Still having cramps this morning. Will get water- soluble SBFT today. Either he improves after this study or he doesn't and if not (or the study shows signs of enteritis) then will start IV hydrocortisone for presumed Crohn's. Pt agreeable with this plan. Condition Stable. Time Spent: < 30 min Exam Sepsis Risk: No Definite Risk ROXANA ZEPEDA MD May 05, 2019 07:56
[2019-05-05] MEDS ORDERED: DIATRIZOATE MEGL/DIATRIZOA SOD 120 ML SOLN PO ONE (08:20)
[2019-05-05] MEDS: PANTOPRAZOLE SOD 40 MG IV VIAL IVP SCH (08:35)
[2019-05-05] MEDS: ENOXAPARIN 40 MG/0.4ML SYR SC SCH (08:35)
--- NOTE | 2019-05-05 10:25 | RADIOLOGY IMAGING REPORT ---
[place] [facility] [place] NAME: Werner Oneill : 1970 MR: [id number] V: [id number] EXAM DATE: ORDERING PHYSICIAN: ROXANA ZEPEDA TECHNOLOGIST: Location: [facility] Patient: Werner Oneill : 1970 Visit/Account:[id number] Date of Sevice: 05/04/2019 XR SMALL BOWEL SERIES HISTORY: SBO, water soluble contrast only please, inflammation? 90 mL of Gastrografin administered orally Findings: [place] KUB demonstrates nonspecific bowel gas pattern. No abdominal mass lesions. No abnormal calcif ications. Initial immediate post Gastrografin film demonstrates a normal appearing stomach with David rografin through the proximal jejunal bowel loops. At the 30 minute film there were normal appearing jejunal and ileal bowel loops with Gastrografin seen down into the pelvis. The 60 minute film demon strated gastro throughout colon into the rectum. IMPRESSION: 1. Negative Gastrografin study for evidence of obstruction. No obvious small bowel pathology noted. Report Dictated By: Alessandro Saha MD at 05/05/2019 10:16 AM Report E-Signed By: Alessandro Saha MD at 05/05/2019 10:18 AM WSN:[email or web address]
[2019-05-05 11:15] VITALS: BP 102/84
[2019-05-05 15:06] VITALS: BP 118/82
[2019-05-05 19:04] VITALS: BP 114/80
[2019-05-05 22:44] VITALS: BP 124/89
[2019-05-06 04:35] VITALS: BP 108/82
[2019-05-06 06:54] VITALS: BP 109/80
[2019-05-06] MEDS ORDERED: ACETAMINOPHEN 325 MG TAB PO PRN (07:20)
--- NOTE | 2019-05-06 07:20 | General Surgery Progress Note ---
Subjective Progress Notes Subjective No complaints this morning. Feels hungry. Feels some abdominal discomfort but reports it feels more like hunger than his presenting symptoms. Physical Exam Vital Signs Date Time Temp Pulse Resp B/P (MAP) Pulse Ox O2 Delivery O2 Flow Rate FiO2 05/06/19 06:54 97.7 15 109/80 (90) 94 Room Air 05/06/19 04:35 58 05/04/19 04:00 1.0 Intake and Output 05/06/19 07:03 Intake Total 2480 ml Balance 2480 ml Intake Oral 500 ml IV Total 1980 ml # Voids 1 # Bowel Movements 5 General Appearance: Alert, Awake, No Acute Distress, Afebrile GI: Other (Soft, mild TTP, benign exam) Extremities: Warm, Perfused Result Diagram: 05/05/1951705/05/19517 Assessment and Plan Problems: (1) Partial small bowel obstruction Status: Acute Assessment & Plan: 05/03/19: Admit, NPO, NG tube decompression, IV fluids, pain and nausea control. If no better in the morning then will proceed with water- soluble SBFT. I have explained small bowel obstructions and their treatment to the patient in detail. He seems to understand this discussion and his questions have been answered. He would like to proceed with this plan. It is possible that his obstruction is due to Crohn's-related terminal ileitis and so if he fails to improve in the next 48 hours or if the SBFT indicates Crohn's ileitis (although water soluble contrast will make the study less sensitive at detecting ileitis) then will start IV steroids and then convert to Budesonide if he improves on steroids. He will need a colonoscopy at some point in the near future, during this hospitalization if he fails to improve or as an outpatient if he responds to the above plan. 05/04/19: Seems to be doing much better. Passing flatus. Offered to get water- soluble SBFT prior pulling NG tube since he was just admitted last evening but he wants the NG tube out and so I removed it this morning. Will try clear diet this morning. If he remains asymptomatic and goes home tomorrow, I will see him back in my office because he still needs further w/u to look for Crohn's which will include a CT enterography and colonoscopy with small bowel inspection and biopsies as an outpatient. He may also need capsule endoscopy. He seems agreeable with this plan. 05/05/19: Symptoms returned yesterday, albeit not as severe, when he tried to eat jell-o so made NPO. Still having cramps this morning. Will get water- soluble SBFT today. Either he improves after this study or he doesn't and if not (or the study shows signs of enteritis) then will start IV hydrocortisone for presumed Crohn's. Pt agreeable with this plan. 05/06/19: Doing better. SBFT revealed no further obstruction; no other abnormalities noted although water-soluble contrast used so sensitivity not as great. Will try regular diet today and if he tolerates this then home later today with o/p f/u for further w/u including CT enterography and colonoscopy with inspection of terminal ileum. If he has continued symptoms or doesn't tolerate a diet then will start steroids. Pt agreeable with this plan. Condition Stable. Time Spent: < 30 min Exam Sepsis Risk: No Definite Risk ROXANA ZEPEDA MD May 06, 2019 07:20
[2019-05-06] MEDS: ENOXAPARIN 40 MG/0.4ML SYR SC SCH (08:24)
[2019-05-06] MEDS ORDERED: PANTOPRAZOLE SOD 40 MG TABEC PO SCH (09:00)
--- NOTE | 2019-05-06 11:05 | Medical Nutrition Therapy ---
Nutrition Anthropometrics Height (Inches): 67.00 Height (Calculated Centimeters: 170.825362 Weight (Pounds): 151 Weight (Calculated Kilograms): 68.492 BMI: 23.6 Hx Weight Loss: No Hx Weight Gain: No Cachorro Nutrition Score: Probably Inadequate Cachorro Nutrition Risk Score: 20 Dietary Referral Nutrition Risk Factors: Nutrition Risk Comment: Physical Findings Physical Appearance: WNR Skin Appearance Skin Appearance: Edema Edema Location Modifier: Edema Location: Type of Edema: Degree of Edema: Gastrointestinal Symptoms GI Symtoms: Bloating, Change in Bowel Pattern Tube Present: NG Bowel Sounds: Recent Bowel Pattern: Stool Characteristics: Nutritional Diagnosis Nutritional Risk Acuity 1: GI Obstruction Past Medical History: GERD, hernia repair Nutritional Acuity: 1-High Nutrition Diagnosis: Excessive Food Intake, Altered GI Function Nutrition Etiology: Physiological Causes Nutrition Problem/Etiology/Sym: partial SBO Energy Requirement: 1990 (HBE AF 1.3) Protein Requirement: 69 (1g/kg) Fluid Requirement: 1990 Diet Type: Diet as Tolerated ARAVIND/REG Nutrition Intervention: Cont diet as ordered Nutrition Monitoring & Eval Nutrition Goals: Eat 75-100% Meal RD Patient Assessment Time: [address] Assessment Type: RD Re-Assessment Patient Nutrition Acuity: 1-High Follow Up Date: May 06, 2019 Nutritional Comment: 05/04/19: Reviewed pt current and past medical hx. Pertinent for previous episode of blood in stool about 10 months ago, and GERD. Spoke with pt this am, discussed following a low fiber diet/low residue diet. Pt has had no recent wt loss, no diarrhea except for 10 months ago. According to MD report, Dr. Garrido wants to do additional work up to determine if pt has Chron's disease. Recommend advance diet as tolerated to medical liquid/GI soft. Will continue to monitor pt tolerance to clears and resolution of bowel obstruction.JESSICA 05/06 Diet changed to regular. Pt ate 100% of regualr diet. NG tube d/dasha. Will cont to monitor and encourage intake. KRISSY ARORA May 06, 2019 11:05
[2019-05-06 11:40] VITALS: BP 112/95
--- NOTE | 2019-05-06 13:31 | Short(Outpt) Discharge Summary ---
Discharge Summary Reason for Hosp/Final Diag: (1) Partial small bowel obstruction Status: Acute Hospital Course & Plan: 05/03/19: Admit, NPO, NG tube decompression, IV fluids, pain and nausea control. If no better in the morning then will proceed with water-soluble SBFT. I have explained small bowel obstructions and their treatment to the patient in detail. He seems to understand this discussion and his questions have been answered. He would like to proceed with this plan. It is possible that his obstruction is due to Crohn's-related terminal ileitis and so if he fails to improve in the next 48 hours or if the SBFT indicates Crohn's ileitis (although water soluble contrast will make the study less sensitive at detecting ileitis) then will start IV steroids and then convert to Budesonide if he improves on steroids. He will need a colonoscopy at some point in the near future, during this hospitalization if he fails to improve or as an outpatient if he responds to the above plan. 05/04/19: Seems to be doing much better. Passing flatus. Offered to get water- soluble SBFT prior pulling NG tube since he was just admitted last evening but he wants the NG tube out and so I removed it this morning. Will try clear diet this morning. If he remains asymptomatic and goes home tomorrow, I will see him back in my office because he still needs further w/u to look for Crohn's which will include a CT enterography and colonoscopy with small bowel inspection and biopsies as an outpatient. He may also need capsule endoscopy. He seems agreeable with this plan. 05/05/19: Symptoms returned yesterday, albeit not as severe, when he tried to eat jell-o so made NPO. Still having cramps this morning. Will get water- soluble SBFT today. Either he improves after this study or he doesn't and if not (or the study shows signs of enteritis) then will start IV hydrocortisone for presumed Crohn's. Pt agreeable with this plan. 05/06/19: Doing better. SBFT revealed no further obstruction; no other abnormalities noted although water-soluble contrast used so sensitivity not as great. Will try regular diet today and if he tolerates this then home later today with o/p f/u for further w/u including CT enterography and colonoscopy with inspection of terminal ileum. If he has continued symptoms or doesn't tolerate a diet then will start steroids. Pt agreeable with this plan. 05/06/19 (afternoon): Doing well. Passing flatus and stool. Tolerating diet. Will d/c to home with o/p f/u. Departure Discharge to: Home, Self Care Discharge Instructions Home Meds Reported Medications Omeprazole (OMEPRAZOLE) 40 Mg Capsule.dr, 1 CAP PO QDAY 05/04/19 Escitalopram Oxalate (LEXAPRO) 20 Mg Tablet, 20 MG PO QDAY, TAB 01/12/17 Discontinued Reported Medications Esomeprazole Mag Trihydrate (Nexium) 20 Mg Capsule.dr, DAILY 01/28/12 Discontinued Scripts Loperamide Hcl (IMODIUM A-D) 1 Mg/7.5 Ml Liquid, 1 MG PO BID, #10 Prov:TIANNA ARCEO MD 01/12/17 Metronidazole (FLAGYL) 500 Mg Tablet, 500 MG PO BID, #14 TAB Prov:TIANNA ARCEO MD 01/12/17 Ciprofloxacin Hcl 500 Mg Tab (CIPRO 500 MG TAB) 500 Mg Tablet, 500 MG PO BID, #20 Prov:TIANNA ARCEO MD 01/12/17 Follow up Referrals: General Surgery - 05/24/19 @ Surgery, General with ROXANA ZEPEDA MD You have a follow up appointment scheduled with Dr. Zepeda on 05/24/19, at 4:00pm. Diet: Regular Activity: As Tolerated Special Instructions: My office will call you in the next week to schedule a CT scan prior to your follow up appointment with me so I can discuss those results with you and we will discuss a colonoscopy at your follow up appointment. ROXANA ZEPEDA MD May 06, 2019 13:31
== END 2019-05-06 13:45 | disposition home or self-care (01) | DRG 389 ==
LOC: ER 16:25 → MED 19:24
PROVIDERS: ADMIT Surgery; ATTEND Surgery
PROC: 0D9670Z Drainage of Stomach with Drainage Device, Via Natural or Artificial Opening (ICD-10-PCS; principal; 2019-05-03)
DX: K56.600 Partial intestinal obstruction, unspecified as to cause (principal); K92.1 Melena; K21.9 Gastro-esophageal reflux disease without esophagitis; Z87.891 Personal history of nicotine dependence
CPT/HCPCS: 36415; 71045; 71046; 74177; 74250; 80320; 81001; 82040; 82247; 82310; 82374; 82435; 82565; 82947; 83690; 84075; 84132; 84155; 84295; 84450; 84460; 84520; 85025; 85610; 85651; 85730; 86140; 96361; 96374; 96375; 96376; 99285; C9113; J0131; J1170; J1650; J2270; J2405; J3480; J7030; Q9967